=== PATIENT | female | born 1960 | race Caucasian/White ===

== ENCOUNTER → 2021-06-23 10:05 | Outpatient (CLI) | payer OTHER, SELFPAY ==
[2021-06-23 12:40] LABS: Thyroid Stim Hormone (TSH) 4.89 uIU/mL (0.358-3.74)
== END ==
PROVIDERS: Referring Provider Internal Medicine Endocrinology, Diabetes & Metabolism; Visit Provider Internal Medicine Endocrinology, Diabetes & Metabolism
DX: E06.3 Autoimmune thyroiditis (principal)
CPT/HCPCS: 36415; 84443

== ENCOUNTER → 2024-02-16 | Outpatient (CLI) | payer OTHER, SELFPAY ==
[2024-02-16 16:58] LABS: Absolute Lymphocyte Count 2.88 X10^3/uL (0.83-4.51); Absolute Neutrophil Count 5.7 X10^3/uL (2.0-7.7); Basophil# 0.13 X10^3/uL; Basophil% 1.4 % (0-1); Eosinophil# 0.04 X10^3/uL; Eosinophils% 0.4 % (0-5); Hematocrit 45.5 % (37-47); Hemoglobin 14.9 g/dL (12.0-15.0); Lymphocyte # 2.88 X10^3/ul (0.83-4.51); Lymphocyte % 31.1 % (19-41); Mean Corp Hgb Conc 32.7 g/dL (32-36); Mean Corpuscular Hgb 30.5 pg (27.0-32.0); Mean Platelet Vol. 9.7 fl (6.2-12.0); Monocyte# 0.45 X10^3/uL; Monocyte% 4.9 % (0-10); NRBC Flagged by Analyzer 0 % (0-5); Neutrophil # 5.74 X10^3/uL (2.7-7.7); Neutrophil % 61.9 % (47-70); Platelet Count 283 K/mm3 (150-450); RBC Distribution Width CV 14.1 % (11.6-14.6); RBC Distribution Width SD 48.4 fl (35.1-43.9); Red Blood Count 4.89 M/mm3 (4.2-5.4); White Blood Count 9.3 K/mm3 (4.4-11.0)
[2024-02-16 17:09] LABS: Erythrocyte Sedimentation Rate 11 mm/hr (0-30)
[2024-02-16 17:12] LABS: CRP 3.26 mg/L (0.0-3.0); Iron 76 ug/dL (50-170); Iron Binding Capacity,Total 291 ug/dL (250-450); PERCENT IRON SATURATION 26.1 % (15.0-55.0)
[2024-02-16 17:14] LABS: Ferritin 84 ng/mL (8-252); LDH 135 U/L (84-246)
[2024-02-16 17:43] LABS: Carboxyhemoglobin Frac (CO) 6.6 % (0.0-1.5)
[2024-02-16 18:09] LABS: Vitamin B12 899 pg/mL (211-911)
[2024-02-17 00:55] LABS: Xtra Tube EP Lab EXTRA TUBE
[2024-02-20 18:17] LABS: Erythropoietin 13.3 mIU/mL (2.6-18.5)
== END | disposition home or self-care (01) ==
LOC: ONC 16:37
PROVIDERS: Referring Provider Internal Medicine Medical Oncology; Visit Provider Internal Medicine Medical Oncology
DX: D75.1 Secondary polycythemia (principal)
CPT/HCPCS: 36415; 82375; 82607; 82668; 82728; 83540; 83550; 83615; 85025; 85652; 86140